=== PATIENT | male | born 1975 | race Two or more races ===

== ENCOUNTER 2022-06-06 12:47 | Emergency (ER) | payer OTHER ==
[~2022-06-06] VITALS: Ht 182.9 cm; Wt 88.5 kg
[2022-06-06] MEDS ORDERED: ASPIRIN 325 MG TAB ONE (13:59)
[2022-06-06] MEDS ORDERED: ASPIRIN 81 MG CHEW TAB PO ONE (14:15)
[2022-06-06] MEDS ORDERED: IOPAMIDOL 370 MG/ML 100 ML INFUS..BTL INJ ONE (14:47)
[2022-06-06] MEDS ORDERED: PROTONIX40 MG PO (16:24)
[2022-06-06 16:49] VITALS: BP 144/88
== END 2022-06-06 16:52 | disposition home or self-care (01) ==
LOC: FSED 12:52
DX: R10.13 Epigastric pain (principal); K21.9 Gastro-esophageal reflux disease without esophagitis; R11.10 Vomiting, unspecified
CPT/HCPCS: 71260; 80053; 81003; 82553; 84484; 85025; 93005; 99284; C9113; Q9967